=== PATIENT | female | born 1960 | race Caucasian/White ===

== ENCOUNTER 2023-04-17 16:52 | Emergency (ER) | payer SELFPAY ==
[~2023-04-17] VITALS: Ht 160 cm; Wt 54.4 kg
[2023-04-17 16:55] VITALS: BP_SYST 148
--- NOTE | 2023-04-17 17:00 | NUR ---
Patient to ER bed 06 to gown for evaluation. Side rails up.
--- NOTE | 2023-04-17 17:10 | NUR ---
Pt bib EMS from hotel with c/o back pain 8/10 x3 days, denies any fall or trauma. V/S stable.
[2023-04-17] MEDS ORDERED: LORazepam 2 MG/ML VIAL IM ONE (17:15)
[2023-04-17] MEDS ORDERED: HALOPERIDOL LACTATE 5 MG/ML VIAL IM ONE (17:15)
[2023-04-17] MEDS ORDERED: DIPHENHYDRAMINE INJ 50 MG/ML VIAL IM ONE (17:15)
--- NOTE | 2023-04-17 17:25 | NUR ---
ER Dr. Guzman at bedside examining patient.
--- NOTE | 2023-04-17 18:49 | NUR ---
16 # FR In and Out catheter with use of sterile technique. Immediate return of 100 ml urine noted. Urine sample collected and sent to lab. Pt tolerated procedure . Patient unable to toilet self.
--- NOTE | 2023-04-17 19:15 | NUR ---
Received verbal report from outgoing nurse JESÚS Carrillo. Received pt resting with eyes closed, no s/s of distress noted. Safety measures in place.
[2023-04-17 19:26] LABS: URINE OXYCODONE SCREEN NEGATIVE (NEG <=100); URINE PROPOXYPHENE SCREEN NEGATIVE (NEG <=300)
[2023-04-17 19:27] LABS: BARBITURATE, URINE NEGATIVE (NEG <=200); CANNABINOID, URINE POSITIVE (NEG <=50)
[2023-04-17 19:28] LABS: URINE AMPHETAMINE POSITIVE (NEG <=500)
[2023-04-17 19:29] LABS: METHAMPHETAMINES SCREEN,URINE POSITIVE (NEG <=500)
[2023-04-17 19:31] LABS: BENZODIAZEPINE, URINE NEGATIVE (NEG <=150); UR TRICYCLIC ANTIDEPRESSANTS POSITIVE (NEG <=300); URINE METHADONE NEGATIVE (NEG <=200)
[2023-04-17 19:32] LABS: COCAINE, URINE NEGATIVE (NEG <=150); OPIATE, URINE NEGATIVE (NEG <=100); PHENCYCLIDINE SCREEN,URINE NEGATIVE (NEG <=25)
--- NOTE | 2023-04-17 21:37 | NUR ---
PT CONTINUES TO REST WITH EYES CLOSED, NO S/S OF DISTRESS NOTED.
[2023-04-18] MEDS ORDERED: predniSONE 20 MG TABLET PO ONE (03:15)
[2023-04-18] MEDS ORDERED: GABAPENTIN 300 MG CAPSULE PO ONE (03:15)
[2023-04-18] MEDS ORDERED: CYCLOBENZAPRINE HCL 10 MG TABLET (FLEXERIL) PO ONE (03:15)
[2023-04-18] MEDS ORDERED: KETOROLAC TROMETHAMINE 30 MG VIAL IM ONE (03:15)
[2023-04-18 04:00] VITALS: BP_SYST 141
--- NOTE | 2023-04-18 04:00 | NUR ---
Patient given written and verbal discharge instructions and verbalizes understanding. ER DR GANDHI discussed with patient the results and treatment provided. Patient in stable condition. ID arm band removed. NO Rx given. Patient educated on pain management and to follow up with PMD. Pain Scale 0/10. Opportunity for questions provided and answered. Medication side effect fact sheet provided.
== END 2023-04-18 04:00 | disposition home or self-care (01) ==
LOC: SED 16:52
DX: F19.10 Other psychoactive substance abuse, uncomplicated (principal); M54.50 Low back pain, unspecified; Z79.899 Other long term (current) drug therapy
CPT/HCPCS: 99285; 80307; 96372 ×2; J1200; J1630; J2060; J7512; J1885